=== PATIENT | female | born 1975 | race Caucasian/White ===

== ENCOUNTER 2021-02-06 15:27 | Inpatient (IN) ==
[2021-02-06 16:07] LABS: Bilirubin,Urine Negative (Negative); Blood,Urine Negative (Negative); Clarity,Urine Clear (Clear); Color,Urine Light-Yellow (Yellow); Glucose,Urine (UA) Normal (Normal); Ketones,Urine Negative (Negative); Leukocyte Esterase,Urine Negative (Negative); Nitrite,Urine Negative (Negative); Protein,Urine Negative (Neg-Trace); Specific Gravity,Urine 1.012 (1.010-1.025); Urobilinogen,Urine Normal (Normal)
[2021-02-06 16:14] LABS: Estimated Average Glucose 105 mg/dl; Hemoglobin A1C 5.3 %
[2021-02-06 16:16] LABS: Amphetamine Screen,Urine Positive ng/mL (Cutoff=1000); Barbiturate Screen,Urine Negative ng/mL (Cutoff=200); Benzodiazepines Screen,Urine Negative ng/mL (Cutoff=200); Cannabinoid Screen,Urine Negative ng/mL (Cutoff = 50); Cocaine Screen,Urine Positive ng/mL (Cutoff= 300); Opiate Screen,Urine Negative ng/mL (Cutoff=300); Phencyclidine Screen,Urine Negative ng/mL (Cutoff=25)
[2021-02-06 16:20] LABS: Acetaminophen < 10 mcg/mL (10-20); BUN/Creatinine Ratio 15 (6-26); Blood Urea Nitrogen 13 mg/dL (6-20); Calcium 9.1 mg/dL (8.6-10.3); Carbon Dioxide 25 mEq/L (23-29); Chloride 103 mEq/L (98-107); Chol/HDL Ratio 3.6 (0-4.9); Cholesterol 186 mg/dL (< 200); Ethanol < 10 mg/dL (Less than 10); Glucose 100 mg/dL (70-105); HDL Cholesterol 51 mg/dL (40-59); Osmolality,Calculated 282 (280-300); Potassium 4.1 mEq/L (3.5-5.1); Salicylate < 2.5 mg/dL (15.0-30.0); Sodium 136 mEq/L (136-145); Triglycerides 436 mg/dL (< 150); eGFR For African Americans > 60 (> 60); eGFR For Non-African Americans > 60 (> 60)
[2021-02-06 16:52] LABS: Basophils # 0.1 K/mcL (0.0-0.2); Basophils % 0.3 %; Eosinophils # 0.2 K/mcL (0.0-0.6); Hematocrit 43.1 % (35.3-44.9); Hemoglobin 14.7 g/dL (11.5-15.4); Immature Granulocytes % 0.4 % (0-4); Lymphocytes # 4.2 K/mcL (0.6-4.6); Lymphocytes % 25.3 %; Mean Corpuscular HGB Conc 34.1 g/dL (31.6-35.5); Mean Corpuscular Hemoglobin 33.1 pg (28.0-33.3); Mean Corpuscular Volume 97.1 fL (83.0-100.0); Mean Platelet Volume 9.6 fL (9.4-12.4); Monocytes # 0.8 K/mcL (0.0-1.3); Monocytes % 4.9 %; Neutrophils # 11.2 K/mcL (1.6-8.9); Platelet Count 439 K/mcL (140-400); Red Blood Count 4.44 M/mcL (3.82-4.97); Red Cell Distribution Width 12.7 % (11.5-14.5); Segmented Neutrophils % 68.1 %; White Blood Count 16.5 K/mcL (4.3-11.1)
[2021-02-06 17:14] LABS: Platelet Estimate Normal (Normal)
[2021-02-06] MEDS ORDERED: *HR* LORazepam 1 MG TABLET PO PRN (20:05)
[2021-02-06] MEDS ORDERED: Mag Hydrox/Al Hydrox/Simeth 30 ML UDC PO PRN (20:05)
[2021-02-06] MEDS ORDERED: haloperidoL 5 MG TABLET PO PRN (20:05)
[2021-02-06] MEDS ORDERED: Ibuprofen 400 MG TABLET PO PRN (20:05)
[2021-02-06] MEDS ORDERED: *HR* LORazepam 2 MG/ML VIAL IM PRN (20:05)
[2021-02-06] MEDS ORDERED: Haloperidol Lactate 5 MG/ML VIAL IM PRN (20:05)
[2021-02-06] MEDS: hydrOXYzine pamoate 25 MG CAPSULE PO PRN (22:33)
[2021-02-06] MEDS: traZODone 50 MG TABLET PO PRN (22:50)
[2021-02-07] MEDS: Folic Acid 1 MG TABLET PO SCH (16:59)
[2021-02-07] MEDS: Nicotine 21 MG PATCH.TD24 TD SCH (16:59)
[2021-02-07] MEDS: Thiamine (B-1) 100 MG TABLET PO SCH (16:59)
[2021-02-07] MEDS: Artificial Tears SOLN 15 ML BOTTLE BOTH EYES SCH ×2 (17:43→20:52)
[2021-02-07] MEDS: traZODone 50 MG TABLET PO PRN (21:48)
[2021-02-07] MEDS: hydrOXYzine pamoate 25 MG CAPSULE PO PRN (21:48)
[2021-02-08] MEDS: Folic Acid 1 MG TABLET PO SCH (09:48)
[2021-02-08] MEDS: Artificial Tears SOLN 15 ML BOTTLE BOTH EYES SCH ×3 (09:48→16:07)
[2021-02-08] MEDS: Thiamine (B-1) 100 MG TABLET PO SCH (09:48)
[2021-02-08] MEDS: Nicotine 21 MG PATCH.TD24 TD SCH (11:52)
[2021-02-09] MEDS: Artificial Tears SOLN 15 ML BOTTLE BOTH EYES SCH ×5 (01:27→21:20)
[2021-02-09] MEDS: Folic Acid 1 MG TABLET PO SCH (09:15)
[2021-02-09] MEDS: Thiamine (B-1) 100 MG TABLET PO SCH (09:15)
[2021-02-09] MEDS: Nicotine 21 MG PATCH.TD24 TD SCH (19:01)
[2021-02-09] MEDS: MOM Conc 10 ML UD.LIQ PO PRN (21:21)
[2021-02-10] MEDS: Thiamine (B-1) 100 MG TABLET PO SCH (08:33)
[2021-02-10] MEDS: Folic Acid 1 MG TABLET PO SCH (08:33)
[2021-02-10] MEDS: Artificial Tears SOLN 15 ML BOTTLE BOTH EYES SCH ×4 (08:34→22:02)
[2021-02-10] MEDS: Nicotine 21 MG PATCH.TD24 TD SCH (08:35)
[2021-02-10] MEDS: MOM Conc 10 ML UD.LIQ PO PRN (22:01)
[2021-02-11] MEDS: Artificial Tears SOLN 15 ML BOTTLE BOTH EYES SCH (08:33)
[2021-02-11] MEDS: Thiamine (B-1) 100 MG TABLET PO SCH (08:33)
[2021-02-11] MEDS: Folic Acid 1 MG TABLET PO SCH (08:33)
[2021-02-11] MEDS: Nicotine 21 MG PATCH.TD24 TD SCH (08:43)
[2021-02-11 09:35] VITALS: BP 115/83
== END 2021-02-11 10:55 | disposition home or self-care (01) | DRG 885 ==
LOC: EMEROOARM 15:27 → 1ANU 20:03
PROVIDERS: ADMIT Psychiatry & Neurology Psychiatry; ATTEND Psychiatry & Neurology Psychiatry